=== PATIENT | female | born 1985 | race Caucasian/White ===

== ENCOUNTER 2019-11-06 10:48 | Emergency (ER) | payer BC ==
[2019-11-06 12:09] LABS: #Basophils 0.1 thou/uL (0.0-0.2); #Eosinphils 0.1 thou/uL (0.0-0.7); #Lymphocytes 1.4 thou/uL (1.20-3.40); #Monocytes 0.5 thou/uL (0.11-0.59); #Neutrophils 5.2 thou/uL (1.40-6.50); %Basophils 0.9 % (0.0-1.0); %Eosinophils 0.8 % (0.0-10.0); %Lymphocytes 19.2 % (21.0-51.0); %Monocytes 6.7 % (0.0-10.0); %Neutrophils 72.5 % (42.0-75.0); Mean Corpuscular HGB CONC 34.5 g/dL (32.0-36.0); Mean Corpuscular Hemoglobin 29.9 pg (27.0-31.0); Mean Corpuscular Volume 86.6 fL (78.0-98.0); Mean Platelet Volume 6.7 fL (7.4-10.4); Platelet Count 353 thou/uL (130-400); RBC Distribution Width 12.5 % (11.5-14.5); Red Blood Cell (RBC) Count 4.68 mill/uL (4.20-5.40); White Blood Cell (WBC) Count 7.2 thou/uL (4.8-10.8)
[2019-11-06 12:26] LABS: ALT (SGPT) 10 U/L (8-55); AST (SGOT) 17 U/L (5-34); Albumin 4.3 g/dL (3.5-5.0); Alkaline Phosphatase 76 U/L (40-110); Anion Gap 12 mmol/L (10-20); BHCG - Serum POSITIVE (NEGATIVE); BUN (Urea Nitrogen) 16 mg/dL (7.0-18.7); Bilirubin, Total 0.4 mg/dL (0.2-1.2); Calc. Creatinine Clearance 0 mL/min (70-130); Calcium 9.2 mg/dL (7.8-10.44); Carbon Dioxide 24 mmol/L (22-29); Chloride 103 mmol/L (98-107); Estimated GFR-MDRD 90; Globulin 2.8 g/dL (2.4-3.5); Glucose 92 mg/dL (70-105); Potassium 3.5 mmol/L (3.5-5.1); Pregs Control Background? CLEAR/WHITE (CLR/WHITE); Pregs Control Bar Appear? YES (CONTROL BAR); Protein, Total 7.1 g/dL (6.0-8.3); Sodium 135 mmol/L (136-145)
[2019-11-06 12:27] LABS: Bilirubin Negative (Negative); Blood, Urine Trace (Negative); Clarity Clear (Clear); Glucose, Urine (Dipstick) Normal (Negative); Leukocyte Negative Leu/uL (Negative); Nitrite Negative (Negative); Protein, Urine (Dipstick) Negative (Neg-Trace); RBC/HPF 0-3 HPF (0-3); Squamous Epithelial 0-3 HPF (0-3); Urobilinogen Normal mg/dL (Less than 2); WBC/HPF 0-3 HPF (0-3)
[2019-11-06 12:33] LABS: Bacteria/HPF 1+ HPF (None Seen)
--- NOTE | 2019-11-06 15:19 | ULT ---
TRANSABDOMINAL AND TRANSVAGINAL PELVIC ULTRASOUND WITH CALVO SCALE COLOR FLOW AND SPECTRAL DOPPLER GREG GING: HISTORY: A 34-year-old female with pelvic pain, vaginal bleeding, and positive home test. FINDINGS: The uterus measures 9.3 x 4.4 x 5.8 cm without evidence of uterine mass or endometrial fluid. No int rauterine gestational sac is seen. The endometrium measures 17 mm in thickness. The right ovary measures 3.3 x 1.7 x 2 cm and the left ovary measures 4.7 x 2.9 x 2.8 cm. Flow is de monstrated to both ovaries. No free fluid is seen in the cul-de-sac. There is a 2.2 x 2.1 x 2 cm cyst with internal echoes in the left ovary. Also noted is a 1.5 x 1.4 x 1 cm nonvascular echogenic structure in the left ovary. IMPRESSION: 1. No evidence of intrauterine . 2. Left ovarian cyst and probable echogenic mass as discussed above. Correlation with serial serum HCG levels and followup ultrasound is recommended. POS: ANNA MARIE
[2019-11-09 00:09] LABS: Chlamydia by PCR Not Detected (NotDetected); GC by PCR Not Detected (NotDetected)
== END 2019-11-06 16:55 | disposition home or self-care (01) ==
LOC: ERS 10:48
DX: O20.0 Threatened abortion (principal); Z3A.01 Less than 8 weeks gestation of pregnancy
CPT/HCPCS: 36415; 76856; 80053; 81003; 81015; 84702; 84703; 85025; 86900; 86901; 87480; 87491; 87510; 87591; 87660; 90384; 96372

== ENCOUNTER 2019-11-08 10:03 | Emergency (ER) | payer BC | END 2019-11-08 11:44 | disposition home or self-care (01) | LOC: ERS 10:03 | DX: O03.9 Complete or unspecified spontaneous abortion without complication (principal) | CPT/HCPCS: 36415; 84702; 99283 ==

== ENCOUNTER 2021-02-08 15:45 | Outpatient (CLI) | payer BC ==
[~2021-02-08 15:45] MED LIST: Iopamidol 300 61% 50 ML VIAL FS ONE
== END 2021-02-08 15:46 | disposition home or self-care (01) ==
LOC: RAD 15:45
PROVIDERS: ATTEND Obstetrics & Gynecology
DX: N97.9 Female infertility, unspecified (principal)
CPT/HCPCS: 58340; 74740; Q9967

== ENCOUNTER 2024-10-20 15:49 | Outpatient (CLI) | payer BC | END 2024-10-20 15:50 | disposition home or self-care (01) | LOC: BICRAD 15:49 | PROVIDERS: ATTEND Nurse Practitioner Family | DX: J10.1 Influenza due to other identified influenza virus with other respiratory manifestations (principal) | CPT/HCPCS: 71046 ==